=== PATIENT | male | born 1990 | race Caucasian/White ===

== ENCOUNTER 2017-03-25 04:35 | Emergency (ER) | payer OTHER ==
[~2017-03-25] VITALS: Ht 180.3 cm; Wt 70.0 kg
[~2017-03-25 04:35] MED LIST: TYLOTC500 PO
[2017-03-25 04:39] VITALS: TEMP 36.8; Ht 180.3 cm; Wt 70.0 kg
[2017-03-25] MEDS ORDERED: DiphenhydrAMINE HCL 50 MG/ML VIAL IV STA (04:53)
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
[2017-03-25] MEDS ORDERED: ALBUT/IPRATROP 3MG/0.5MG NEB 3 ML VIAL INH ONE (05:00)
[2017-03-25 05:08] VITALS: PULSE 97; O2SAT 98
[2017-03-25 05:20] LABS: BASO % 0.1 %; BASO ABS # 0.02 K/uL (0-0.2); COMPLETE YES; EOS % 0.3 %; HEMATOCRIT 38.9 % (42-52); LYMPH % 19.2 %; LYMPH ABS # 2.81 K/uL (1.2-3.4); MEAN CORPUSCULAR HEMOGLOBIN 33.8 pg (25-34); MEAN CORPUSCULAR HGB CONC 34.4 g/dl (32-36); MEAN PLATELET VOLUME 9.4 fL (7.4-10.4); NEUT % 66.4 %; PLATELET COUNT 244 K/uL (130-400); RED BLOOD COUNT 3.97 M/uL (4.7-6.1); WHITE BLOOD COUNT 14.66 K/uL (4.8-10.8)
[2017-03-25 05:40] LABS: BLOOD UREA NITROGEN 20 mg/dl (7-18); BUN/CREATININE RATIO 16.2 (10-20); CALCIUM 8.5 mg/dl (8.5-10.1); CARBON DIOXIDE 24 mmol/L (21-32); CHLORIDE 109 mmol/L (98-107); CREATININE 1.21 mg/dl (0.60-1.40); GLUCOSE 78 mg/dl (70-99); POTASSIUM 3.4 mmol/L (3.5-5.1); SODIUM 138 mmol/L (136-145)
[2017-03-25] MEDS ORDERED: PRED20TA PO (05:56)
[2017-03-25] MEDS ORDERED: DOXY1TAB6 PO (05:59)
[2017-03-25] MEDS ORDERED: BENZ100C84 PO (06:00)
[2017-03-25] MEDS ORDERED: SODIUM CHLORIDE 0.9% 1000ML 1,000 ML IV STA (06:02)
[2017-03-25] MEDS ORDERED: AZITHROMYCIN 250 MG TAB PO STA (06:08)
[2017-03-25] MEDS ORDERED: ALBUTEROL HFA 8 GM INHALER INH ONE (06:15)
[2017-03-25] MEDS ORDERED: DEXAMETHASONE **PF** INJ 10 MG/ML VIAL IV ONE (06:15)
[2017-03-25 06:30] VITALS: BP 108/59
[2017-03-25] MEDS ORDERED: AZITTAB PO (06:43)
[2017-03-25 06:53] VITALS: PULSE 96; O2SAT 94
--- NOTE | 2017-03-25 06:56 | DIAGNOSTIC IMAGING REPORT ---
CHEST ONE VIEW PORTABLE CLINICAL HISTORY: Chest pain. Hemoptysis. COMPARISON STUDY: No previous studies for comparison. FINDINGS: Lung volumes are normal. No pneumothorax or pleural effusion is present. There is no consolidation or evidence of pulmonary edema. Cardiomediastinal silhouette is normal. IMPRESSION: No acute cardiopulmonary findings. Electronically signed by: Jm Ribera M.D. 03/25/2017 6:55 AM Dictated Date/Time: 03/25/2017 6:54 AM
== END 2017-03-25 06:53 | disposition home or self-care (01) ==
LOC: C.EDB 04:37 → C.EDA 06:53
DX: R05 Cough (principal); J70.5 Respiratory conditions due to smoke inhalation; E86.0 Dehydration; F17.200 Nicotine dependence, unspecified, uncomplicated

== ENCOUNTER 2017-08-25 09:09 | Emergency (ER) | payer OTHER ==
[~2017-08-25] VITALS: Ht 180.3 cm; Wt 75.4 kg
[~2017-08-25 09:09] MED LIST changes: +BENZ100C84 PO; +DOXY1TAB6 PO; +PRED20TA PO; -TYLOTC500 PO
[2017-08-25 09:12] VITALS: TEMP 36.3; Ht 180.3 cm; Wt 75.4 kg
[2017-08-25] MEDS ORDERED: MoRPHine SULFATE 10 MG/ML CARP/VIAL IM STA (09:27)
[2017-08-25] MEDS ORDERED: KETOROLAC TROMETHAMINE 60 MG/2 ML VIAL IM STA (09:27)
[2017-08-25] MEDS ORDERED: ACET-1256 PO (09:30)
[2017-08-25] MEDS ORDERED: MoRPHine SULFATE 4 MG/ML 1 ML CARP\\VIAL ONE (09:34)
--- NOTE | 2017-08-25 09:49 | EMERGENCY ROOM VISIT NOTE ---
History Report prepared by Mercedes: Rah Martinez Under the Supervision of: Dr. Terrance Durham D.O. First contact with patient: 09:19 Chief Complaint: BACK PAIN Stated Complaint: BACK PAIN History of Present Illness The patient is a 27 year old male who presents to the Emergency Room with complaints of constant throbbing back pain beginning three days ago. The patient states that his back pain started three days ago when he was getting out of the bathtub. He notes that he went to the chiropractor the next day and had his back put back in place, which provided no relief of his symptoms. He reports that his back pain is generalized, but is worse on his right side in the middle of his back. The patient states that his pain worsens with movement but is better when he lies down. He notes no other exacerbating or remitting factors. He denies any numbness/tingling in his groin/legs, changes to his bowel movements, fevers, cough, rhinorrhea, CP, SOB, and urinary symptoms. He also denies any recent trauma and falls. He reports that he has no previous history of back surgeries and cancer. Pain is a 10 out of 10 currently. Source of History: patient Onset: three days ago Position: back Symptom Intensity: 10 Quality: other (throbbing) Modifying Factors (Worsening): movement Modifying Factors (Relieving): other (lying down) Associated Symptoms: No fevers, No cough, No chest pain, No SOB, No urinary symptoms Note: The patient also denies any numbness/tingling in his groin/legs, changes to his bowel movements, and rhinorrhea. Review of Systems See HPI for pertinent positives & negatives. A total of 10 systems reviewed and were otherwise negative. Past Medical & Surgical Medical Problems: (1) No chronic problems Family History No pertinent family history stated. Social History Smoking Status: Current Every Day Smoker Marital Status: Housing Status: lives with family Occupation Status: employed Current/Historical Medications Scheduled PRN Cyclobenzaprine Hcl (Flexeril), 10 MG PO TID PRN for Muscle Spasms Miscellaneous Medications Acetaminophen (Tylenol), 500 MG PO Allergies Coded Allergies: No Known Allergies (Unverified , 08/25/17) Physical Exam Vital Signs Date Time Temp Pulse Resp B/P (MAP) Pulse Ox O2 Delivery O2 Flow Rate FiO2 08/25/17 10:49 54 18 127/73 99 Room Air 08/25/17 09:59 86 16 110/67 99 Room Air 08/25/17 09:12 36.3 110 20 117/67 98 Room Air Physical Exam GENERAL: Lying flat in bed, alert, well nourished, in moderate distress, non- toxic EYE EXAM: normal conjunctiva. OROPHARYNX: no exudate, no erythema, lips, buccal mucosa, and tongue normal and mucous membranes are moist NECK: supple, no nuchal rigidity, no adenopathy, non-tender LUNGS: Clear to auscultation. Normal chest wall mechanics HEART: no murmurs, S1 normal and S2 normal ABDOMEN: abdomen soft, non-tender, normo-active bowel sounds, no masses, no rebound or guarding. BACK: Back is symmetrical on inspection and there is no deformity, no midline tenderness, no CVA tenderness. Acute reproducible tenderness in upper lumbar right paraspinal region. SKIN: no rashes and no bruising UPPER EXTREMITIES: upper extremities are grossly normal. LOWER EXTREMITIES: No pitting edema. Flexion and extension of the hips, knees, ankles, and EHL 5/5 bilaterally. Gross sensation is intact. DPs are 2/4 bilateral. Patellar and Achilles reflexes are 2/4 bilateral NEURO EXAM: Normal sensorium, cranial nerves II-XII grossly intact, normal speech, no gross weakness of arms. Medical Decision & Procedures ER Provider Diagnostic Interpretation: Radiology results as stated below per my review and the radiologist's interpretation: THORACIC SPINE 3 VIEWS ROUTINE FINDINGS: There is a mild thoracolumbar levoscoliosis. The paraspinal line is not displaced. No fractures or subluxations are visualized. No destructive lesions are evident on conventional radiographic imaging. IMPRESSION: Mild scoliosis. No fractures or subluxations identified. Electronically signed by: Ken Chung M.D. 08/25/2017 9:57 AM LUMBAR SPINE 2 OR 3 VIEWS FINDINGS: Mild dextroscoliotic curvature of the lumbar spine centered at L2-3. Normal lumbar lordosis. Limbus vertebral body noted at L4. Remaining vertebral bodies normal in height and alignment. Intervertebral disc heights preserved. No radiographic evidence of compression fracture deformity or subluxation. No osseous neural foraminal narrowing. Remainder of the abdomen demonstrates a moderate stool burden. No bowel obstruction. No calcifications to suggest renal calculi allowing for the stool burden. IMPRESSION: 1. Mild dextroscoliotic curvature of the lumbar spine. Otherwise essentially normal. No radiographic evidence of acute osseous injury. Electronically signed by: Oni Felton M.D. 08/25/2017 10:00 AM Laboratory Results Test 08/25/17 10:05 Urine Color DK YELLOW Urine Appearance CLEAR (CLEAR) Urine pH 7.5 (4.5-7.5) Urine Specific [place] 1.026 (1.000-1.030) Urine Protein NEG (NEG) Urine Glucose (UA) NEG (NEG) Urine Ketones NEG (NEG) Urine Occult Blood NEG (NEG) Urine Nitrite NEG (NEG) Urine Bilirubin NEG (NEG) Urine Urobilinogen NEG (NEG) Urine Leukocyte Esterase NEG (NEG) Urine WBC (Auto) 0 /hpf (0-5) Urine RBC (Auto) 0-4 /hpf (0-4) Urine Hyaline Casts (Auto) 0 /lpf (0-5) Urine Epithelial Cells (Auto) 0-5 /lpf (0-5) Urine Bacteria (Auto) NEG (NEG) Laboratory results per my review. Medications Administered Medications (Trade) Dose Ordered Sig/Emilie Route Start Time Stop Time Status Last Admin Dose Admin Ketorolac Tromethamine (Toradol Inj) 60 mg NOW STAT IM 08/25/17 09:27 08/25/17 09:29 DC 08/25/17 09:38 60 MG Morphine Sulfate (MoRPHine SULFATE INJ) 8 mg STK-MED ONCE .ROUTE 08/25/17 09:34 08/25/17 09:35 DC 08/25/17 09:37 8 MG ED Course ED COURSE: Vital signs were reviewed and showed that the patient was tachycardic. The patient's medical record was reviewed The above diagnostic studies were performed and reviewed. ED treatments and interventions as stated above. 0920: The patient was evaluated in room B6. A complete history and physical examination was performed. 0927: Morphine Sulfate 8mg IM, Toradol Inj 60mg IM 1042: Upon reevaluation, the patient is feeling better. I discussed my findings with the patient and he understands and agrees with the treatment plan. Based on the patients age, coexisting illnesses, exam, and lab findings the decision to treat as an outpatient was made. The patient remained stable while under my care. The patient appeared well at the time of discharge. Medical Decision Differential diagnoses includes but is not limited to lumbar radiculopathy, kidney stone, muscle strain, facture, cauda equina, mass, and disc herniation. Patient is a 27-year-old male that presents the ER for 3 days worth of severe right-sided back pain. He notes that is worse with twisting turning bending and movement. Pain is relieved with lying flat. It started while getting out of the tub. He is completely neurologically intact. No red flags i.e. cancer, IV drug us, recent surgery, injections or anything else to suggest infectious etiology. X-rays of the lumbar spine were performed and were unremarkable. Patient was given IM morphine and Toradol. Patient did improve. There is no signs of cauda equina. UA was obtained and was without infection or hematuria to suggest stone. Patient was feeling significantly better. He is updated at bedside. He was discharged to follow-up with PCP as an outpatient. He was discharged with Flexeril and instructed not to drive, work or operate heavy machinery while on this medication. Discussed with Pt concerning signs and symptoms to watch out for. Pt was instructed to follow up with their PCP and discussed with the patient their option to return to the ED at anytime for persistent or worsening symptoms. The appropriate anticipatory guidance and out- patient management, including indications for return to the emergency department , were explained at length to the patient and understood. [place] Drug Monitoring Program Search Results: patient reviewed within database, no issues identified Medication Reconcilliation Current Medication List: was personally reviewed by me Blood Pressure Screening Patient's blood pressure: Normal blood pressure Blood pressure disposition: Did not require urgent referral Impression Primary Impression: Back pain Scribe Attestation The scribe's documentation has been prepared under my direction and personally reviewed by me in its entirety. I confirm that the note above accurately reflects all work, treatment, procedures, and medical decision making performed by me. Departure Information Dispostion Home / Self-Care Prescriptions Cyclobenzaprine Hcl (FLEXERIL) 10 Mg Tab 10 MG PO TID Y for Muscle Spasms, #21 TAB Prov: Terrance Durham, DO 08/25/17 Referrals No Doctor, Assigned (PCP) Forms HOME CARE DOCUMENTATION FORM, IMPORTANT VISIT INFORMATION Patient Instructions My [facility] Additional Instructions Please follow up with your primary care doctor with in the next 24 hours. Any worsening of your symptoms, please return to the ED immediately. This includes any fevers greater than 100.4, worsening pain, chest pain, shortness breath, persistent nausea, vomiting, unable to eat or drink, weakness or numbness in your arms or legs, numbness in her groin, unable to move your bowels or urinate , or any other concerning signs or symptoms from your standpoint. You were given medications during this visit that will inhibit your ability to drive, operate machinery and work. Please do NOT drive, operate machinery or work for the next 12hrs. You were also given a prescription for a narcotic. While taking this medication you should also not drive, operate machinery and or work. Problem Qualifiers Primary Impression: Back pain Back pain location: low back pain Chronicity: acute Back pain laterality: right Sciatica presence: without sciatica Qualified Codes: M54.5 - Low back pain
--- NOTE | 2017-08-25 09:58 | DIAGNOSTIC IMAGING REPORT ---
THORACIC SPINE 3 VIEWS ROUTINE CLINICAL HISTORY: Lower thoracic spine pain COMPARISON STUDY: No previous studies for comparison. FINDINGS: There is a mild thoracolumbar levoscoliosis. The paraspinal line is not displaced. No fractures or subluxations are visualized. No destructive lesions are evident on conventional radiographic imaging. IMPRESSION: Mild scoliosis. No fractures or subluxations identified. Electronically signed by: Ken Chung M.D. 08/25/2017 9:57 AM Dictated Date/Time: 08/25/2017 9:56 AM
--- NOTE | 2017-08-25 10:01 | DIAGNOSTIC IMAGING REPORT ---
LUMBAR SPINE 2 OR 3 VIEWS CLINICAL HISTORY: 27 years-old Male presenting with lower back pain, no history of trauma, rising from sitting position with shooting pain across the mid back, severe pain since. TECHNIQUE: Frontal, lateral, and coned in lateral views of the lumbar spine were obtained. COMPARISON: None. FINDINGS: Mild dextroscoliotic curvature of the lumbar spine centered at L2-3. Normal lumbar lordosis. Limbus vertebral body noted at L4. Remaining vertebral bodies normal in height and alignment. Intervertebral disc heights preserved. No radiographic evidence of compression fracture deformity or subluxation. No osseous neural foraminal narrowing. Remainder of the abdomen demonstrates a moderate stool burden. No bowel obstruction. No calcifications to suggest renal calculi allowing for the stool burden. IMPRESSION: 1. Mild dextroscoliotic curvature of the lumbar spine. Otherwise essentially normal. No radiographic evidence of acute osseous injury. Electronically signed by: Oni Felton M.D. 08/25/2017 10:00 AM Dictated Date/Time: 08/25/2017 9:55 AM
[2017-08-25] MEDS ORDERED: CYCL10TA6 PO (10:44)
[2017-08-25 10:49] VITALS: BP 127/73; PULSE 54; O2SAT 99
== END 2017-08-25 11:05 | disposition home or self-care (01) ==
LOC: C.EDB 09:10
DX: M54.5 Low back pain (principal); F17.200 Nicotine dependence, unspecified, uncomplicated